=== PATIENT | female | born 1945 | race Caucasian/White ===

== ENCOUNTER 2022-01-14 05:03 | Emergency (ER) | payer OTHER ==
[2022-01-14 05:13] VITALS: BMI 21.9
[2022-01-14 06:50] LABS: BASO % 0.3 % (0-2.0); EOS % 2.7 % (0-4.5); HEMATOCRIT 38.9 % (32.4-45.2); HEMOGLOBIN 13.3 GM/dL (10.7-15.3); MCH 31.8 pg (25.7-33.7); MCHC 34.1 g/dl (32.0-36.0); MEAN CELL VOLUME 93.4 fl (80-96); MEAN PLT VOLUME 8.6 fl (7.5-11.1); MONO % 10.5 % (3.8-10.2); NEUT % 50.5 % (42.8-82.8); PLATELET COUNT 239 10^3/uL (134-434); RBC 4.17 M/mm3 (3.60-5.2); RDW 12.7 % (11.6-15.6); WHITE BLOOD COUNT 4.4 K/mm3 (4.0-10.0)
[2022-01-14 06:51] LABS: INR 0.97 (0.83-1.09); PROTHROMBIN TIME (PATIENT) 11.2 SEC (9.7-13.0)
[2022-01-14 06:54] LABS: ACTIVATED PTT 32.8 SECONDS (25.2-36.5)
[2022-01-14 06:59] LABS: CHLORIDE 110 mmol/L (98-107); SODIUM 144 mmol/L (136-145)
[2022-01-14 07:00] LABS: COCAINE, UR NEGATIVE (NEGATIVE); PHENCYCLIDINE,URINE NEGATIVE (NEGATIVE); URINE AMPHETAMINES NEGATIVE (NEGATIVE); URINE BENZODIAZEPINES NEGATIVE (NEGATIVE)
[2022-01-14 07:01] LABS: URINE BARBITURATES NEGATIVE (NEGATIVE)
[2022-01-14 07:02] LABS: CALCIUM 9.1 mg/dL (8.5-10.1)
[2022-01-14 07:03] LABS: ALBUMIN 3.8 g/dl (3.4-5.0); ANION GAP 4 MMOL/L (8-16); BLOOD UREA NITROGEN 16.7 mg/dL (7-18); CO2 30 mmol/L (21-32); GLUCOSE,RANDOM 107 mg/dL (74-106)
[2022-01-14 07:06] LABS: CREATININE 0.7 mg/dL (0.55-1.3); SGOT/AST 19 U/L (15-37); SGPT/ALT 31 U/L (13-61)
[2022-01-14 07:07] LABS: TOT PROT 6.9 g/dl (6.4-8.2)
[2022-01-14 07:08] LABS: BILIRUBIN,TOTAL 0.4 mg/dL (0.2-1)
[2022-01-14 07:09] LABS: ALK PHOS 104 U/L (45-117)
[2022-01-14 07:20] LABS: METHADONE, UR NEGATIVE (NEGATIVE); OPIATES, URI NEGATIVE (NEGATIVE)
[2022-01-14 10:54] VITALS: BP 156/59; PULSE 59
== END 2022-01-14 14:00 | disposition home or self-care (01) ==
LOC: JER 05:03
DX: S09.90XA Unspecified injury of head, initial encounter (principal); W01.0XXA Fall on same level from slipping, tripping and stumbling without subsequent striking against object, initial encounter
CPT/HCPCS: 36415; 70450-TC; 72125-TC; 80053; 80307; 84484; 85025; 85610; 85730; 86850; 86900; 86901; 93005; 93010; 99285-25